=== PATIENT | female | born 1935 | race Caucasian/White ===

== ENCOUNTER → 2016-07-09 | Outpatient (CLI) | payer MEDICARE, OTHER ==
[~2016-07-09] MED LIST: ALBUTEROL SUL0.25 ML; AMBIEN10 M1; ATORVASTATIN CA80 M1 PO; ATROVENT; B121000 MCG/1 IM; BACTRIM DS 8001 TA1 PO; BLOOD PRESSURE PILL; CHOLESTEROL PILL; CIPRO500 MG; COLACE100 MG; DIPROLENE0.05% TP; DOXYCYCLINE HY100 M1 PO; DULCOLAX10 M1 RC; ESTRACE 0.01%42.5 GM V; FE-TABS325 MG PO; FLAGYL500 M1 PO; FLORASTOR 33 MG1 CAP PO; HUMULIN R100 U/ML IJ; JANUVIA100 MG PO; JANUVIA50 MG PO; KLONOPIN0.5 MG; LISINOPRIL HCTZ1 TAB PO; LISINOPRIL20 MG PO; LOPRESSOR25 MG PO; LOPRESSOR50 MG PO; METFORMIN; MILK OF MA400 MG/5 M PO; MILK OF MA400 MG/52 PO; MIRALAX POWDER255 G1 PO; NOVOLOG10 ML SC; NOVOLOG10 ML SQ; OXYBUTYNIN CHLOR5 MG PO; OXYBUTYNIN5 MG PO; RESTORIL15 MG PO; ROBITUSSIN; SEPTRA DS 800 M1 TAB PO; STARLIX60 MG PO; TYLENOL WITH CO1 TA1 PO; TYLENOL325 M2 PO; VANCOCIN250 MG PO; VITAMIN D35000 IU PO; ZITHROMAX Z PA250 MG PO; ZITHROMAX250 MG PO
--- NOTE | ~2016-07-09 | PROC NOTE ---
[place], [place] PROCEDURE NOTE NAME: SAVITA CRUZ UNIT #: [id number] ROOM: DOCTOR: LAKESHIA CALDERA BIRTHDATE: [birth year] DOS: 07/09/2016 MODIFIED BARIUM SWALLOW DOCTOR: Dr. Foote. RADIOLOGIST: BACKGROUND INFORMATION: The patient is an 81-year-old patient was seen for a modified barium swallow. This test was ordered to rule out aspiration. The patient reports a feeling of globus and choking with food. Medical history is significant for cerebral infarction, pharyngeal dysphagia and GERD. The patient resides at a local snf. She receives a mechanical soft diet and thin liquids. Oral peripheral examination revealed presence of natural teeth with no back teeth. Lingual, labial, and buccal skills were within normal limits in terms of strength, range of motion, and coordination. Volitional cough was weak. The patient was able to volitionally swallow. She stated that her mouth was too dry. The patient was alert and able to follow commands throughout the assessment. Respiratory status was reported as within normal limits. METHODS AND MATERIALS USED FOR THE EXAM: The patient was positioned in the lateral plane and examination was viewed under fluoroscopy. The patient was presented with a variety of consistencies to assess swallowing skills including applesauce mixed with barium presented in half teaspoon amounts, barium-coated cookie and sandwich presented in bite size pieces and thin liquid barium taken by cup and straw. ORAL PHASE: The patient achieved adequate labial seal around cup, spoon and straw with no anterior loss. Bolus formation was adequate. Mastication of solids was moderately impaired due to dentition. Oral transit was mild to moderately impaired with these consistencies as well. The patient achieved adequate tongue to palate contact. Tongue to posterior pharyngeal wall contact is within normal limits. Velar functioning within normal limits. PHARYNGEAL PHASE: The pharyngeal swallow occurred within a timely manner. During the swallow, laryngeal elevation and epiglottic function were adequate. No aspiration was seen with any consistency. Transient penetration did occur with thin liquid when taken by straw. This did not occur by cup. There was no residue in the pharynx post-swallow. ESOPHAGEAL PHASE: Radiologist did note a Zenker's diverticulum. Please refer to radiologist reports for further information on this. IMPRESSIONS AND RECOMMENDATIONS: Based upon assessment results, this patient displayed a mild oropharyngeal dysphagia characterized by penetration of liquids via straw. The patient also displayed slow mastication and propulsion of solids due to limited dentition. Radiologist noted a Zenker's diverticulum. Recommend the patient remain on mechanical soft diet and thin liquid. Recommend use of strategies such as avoidance of straws, small bites and sips, eating slowly and alternating liquids and solids. Results and recommendations were shared with [place], [place] PROCEDURE NOTE NAME: SAVITA CRUZ UNIT #: [id number] ROOM: DOCTOR: LAKESHIA CALDERA BIRTHDATE: [birth year] the patient and her son and they verbalized understanding. A written copy of recommendations was also sent for education of snf staff. Thank you very much for this referral. Should you have any questions regarding this patient, please contact the speech pathologist at [phone]. LAKESHIA CALDERA CM:PROCNOTE:PROCEDURE NOTE [id number] LAKESHIA CALDERA
--- NOTE | ~2016-07-09 | SLPPN ---
[place], [place] [employer] PROGRESS NOTE NAME: SAVITA CRUZ UNIT #: [id number] ROOM: DOCTOR: RIKI KATE MD Speech Language Pathology Treatment Note Page 1 of 1 Patient Name: SAVITA CRUZ Date: 07/09/2016 10:54 AM : 1935 SOC Date: 06/28/2016 Provider: [facility] Provider #: [id number] Treating Clinician: JYOTI Vargas-KAMERON Referring Physician: RIKI KATE Onset Date Code Description Primary Diagnosis: 06/27/2016 DYS.PHAGIA DYSPHAGIA Time In: 10:00 AM Time Out: 11:00 [employer] BROKER Interventions and CPT Codes Consisted of: CPT Code Modifiers Minutes Units MOTION FLUOROSCOPY/SWALLOW 13467 60 1 Total Minutes: 60 Total Timed Minutes: 0 Total Untimed Minutes: 60 Total Units: 1 Total Timed Units: 0 Total Untimed Units: 1 07/09/2016 10:55:09 AM ALFREDA Vargas Date/Time State License #: [id number] CM:MORIS [id number] [facility] [place]
--- NOTE | ~2016-07-09 | SLPPOC ---
[place], [place] MEDICAL BILLING INSTRUCTOR PLAN OF CARE NAME: SAVITA CRUZ UNIT #: [id number] ROOM: DOCTOR: RIKI KATE MD Speech Language Pathology Plan of Care Page 1 1 (Initial Evaluation) of Patient Name: SAVITA CRUZ Date: 07/09/2016 10:52 AM : 1935 SOC Date: 06/28/2016 Provider: [facility] Provider #: [id number] Treating Clinician: JYOTI Vargas-MEDICAL BILLING INSTRUCTOR Referring Physician: RIKI KATE Medicare #: [id number] Visits From SOC: 1 Onset Date Description Code Primary Diagnosis: 06/27/2016 DYS.PHAGIA DYSPHAGIA Subjective Comments: Initial evaluation created to initiate the electronic medical record. Please see Nanotecture for details. Initial Level Goals Functional Limitation Reporting Swallowing G8996 - Swallowing functional limitation, current status at therapy episode outset and at reporting intervals Current Status: CJ - At least 20 percent but less than 40 percent impaired, limited or restricted G8997 - Swallowing functional limitation, projected goal status, at therapy episode outset, at reporting intervals, and at discharge or to end reporting Goal Status: CJ - At least 20 percent but less than 40 percent impaired, limited or restricted G8998 - Swallowing functional limitation, discharge status, at discharge from therapy or to end reporting Discharge Status: CJ - At least 20 percent but less than 40 percent impaired, limited or restricted 07/09/2016 10:54:00 AM RIKI KATE Date/Time JYOTI Vargas-MEDICAL BILLING INSTRUCTOR Date I certify the need for these services furnished under this plan of treatment while under my care. State License #: [id number] CM:SLPPOC [id number] 1056 [facility] [place]
--- NOTE | ~2016-07-09 | SLPIE ---
[place], [place] MOLTEN IRON POURER INITIAL EVALUATION NAME: SAVITA CRUZ UNIT #: [id number] ROOM: DOCTOR: RIKI KATE MD Speech Language Pathology Initial Evaluation Page 1 1 of Patient Name: SAVITA CRUZ Date: 07/09/2016 10:52 AM : 1935 SOC Date: 06/28/2016 Provider: [facility] Provider #: [id number] Treating Clinician: JYOTI Vargas-MOLTEN IRON POURER Referring Physician: RIKI KATE Patient Information Address: [address] [place] [address] Physician: RIKI KATE Physician #: [facility], [facility], Zip: [place], [place] [address] Occupation: Unknown # of Approved Visits: 0 Gender: Female Shoe Sewing Machine Operator And Tender: KAYLA CRUZ Medicare #: [id number] Rehabilitation Information / History Onset Date Code Description Primary Diagnosis: 06/27/2016 DYS.PHAGIA DYSPHAGIA Subjective Comments: Initial evaluation created to initiate the electronic medical record. Please see wizboo for details. Clinical Findings Functional Goals Functional Limitation Reporting Swallowing G8996 - Swallowing functional limitation, current status at therapy episode outset and at reporting intervals Current Status: CJ - At least 20 percent but less than 40 percent impaired, limited or restricted G8997 - Swallowing functional limitation, projected goal status, at therapy episode outset, at reporting intervals, and at discharge or to end reporting Goal Status: CJ - At least 20 percent but less than 40 percent impaired, limited or restricted G8998 - Swallowing functional limitation, discharge status, at discharge from therapy or to end reporting Discharge Status: CJ - At least 20 percent but less than 40 percent impaired, limited or restricted 07/09/2016 10:54:00 AM JYOTI Vargas-KAMERON Date/Time [place], [place] [employer] P[employer] INITIAL EVALUATION NAME: SAVITA CRUZ UNIT #: [id number] ROOM: DOCTOR: RIKI KATE MD [facility] License #: [id number] CM:SLPIE 1056 105 [facility]
== END | disposition home or self-care (01) ==
LOC: RAD/SH 06-28 02:30 → RAD 06-28 09:00 → RAD/SH 02:56
DX: K44.9 Diaphragmatic hernia without obstruction or gangrene (principal); Q39.6 Congenital diverticulum of esophagus; R13.10 Dysphagia, unspecified

== ENCOUNTER → 2016-09-06 | Outpatient (CLI) | payer MEDICARE | END | disposition home or self-care (01) | LOC: MRI 09:49 | DX: S83.411A Sprain of medial collateral ligament of right knee, initial encounter (principal); M25.461 Effusion, right knee; S83.281A Other tear of lateral meniscus, current injury, right knee, initial encounter; S83.241A Other tear of medial meniscus, current injury, right knee, initial encounter; M71.21 Synovial cyst of popliteal space [Baker], right knee; M17.11 Unilateral primary osteoarthritis, right knee; X58.XXXA Exposure to other specified factors, initial encounter; Y93.89 Activity, other specified; Y92.89 Other specified places as the place of occurrence of the external cause; Y99.8 Other external cause status ==

== ENCOUNTER → 2016-09-20 | Day surgery (SDC) | payer MEDICARE ==
[~2016-09-20] MED LIST changes: +FAMOTIDINE20 M1 PO; +MARINOL2.5 M1 PO; +MIRALAX17 GM/DOSE PO; +PLAVIX75 M1 PO; +TRAD5TAB1 PO
--- NOTE | ~2016-09-20 | PROC NOTE ---
[place], [place] PROCEDURE NOTE NAME: SAVITA CRUZ UNIT #: [id number] ROOM: DOCTOR: PEDRO WAHL MD BIRTHDATE: [birth year] DOS: 09/20/2016 GASTROENDOSCOPIC REPORT INDICATION FOR PROCEDURE: This is an 81-year-old patient, who presented with a chief complaint of anorexia, undergoing investigation. The patient expresses that she cannot eat. No appetite. PAST MEDICAL HISTORY: Falling episode, fatty liver, abnormal LFTs as well as hypercholesterolemia, hypertension, diabetes mellitus, and rheumatoid arthritis. PAST SURGICAL HISTORY: Hysterectomy, vein ligation, tonsillectomy, and cataracts. FAMILY HISTORY: Noncontributory. ALLERGIES: PENICILLIN. SOCIAL HISTORY: Nonsmoker, nonalcohol consumer. PROCEDURE: Todays' procedure part of investigation is panendoscopy plus biopsy. PREMEDICATION: Versed and Diprivan. SCOPE: Olympus forward-viewing gastroscope Q10 video. Gastritis was noted. Antrum biopsy obtained. Duodenal bulb, second and third part within normal limits. The patient extubated along the lesser curvature, atrophic gastritis was dominating the presentation of the stomach. The patient tolerated the procedure well. IMPRESSION: Atrophic gastritis, anorexia. PLAN AND DISCUSSION: MRI of the pancreas is known to have shown multiple cysts. The esophagus was intentionally not dilated due to easy bleeding at the biopsy site in the stomach. This will be deferred to sometime in the future. We are going to keep the patient on famotidine 20 mg 1 every day. We are going to stimulate her appetite with Marinol 2.5 mg b.i.d. We are going to do a CT scan of the abdomen and pelvis with contrast to ensure there is no occult malignancy on board and that gives us a basic armamentarium to see what our next approach is going to be. She is going to be advised to have a routine followup with you in office and p.r.n. visit with us in GI Clinic. I thank you very much indeed for the opportunity to participate in GI care of your patient. [place], [place] PROCEDURE NOTE NAME: SAVITA CRUZ UNIT #: [id number] ROOM: DOCTOR[facility] [birth year] PEDRO WAHL MD CM:ASH:PROCEDURE NOTE 1503 1537 LOGAN WAHL MD
[2016-09-20 14:33] VITALS: BP 200/88
[2016-09-20 14:48] VITALS: BP 182/72
[2016-09-20 15:03] VITALS: BP 173/70
[2016-09-20 15:18] VITALS: BP 175/72
== END | disposition home or self-care (01) ==
LOC: SDC 09-17 10:15
DX: K29.50 Unspecified chronic gastritis without bleeding (principal); K44.9 Diaphragmatic hernia without obstruction or gangrene; E78.00 Pure hypercholesterolemia, unspecified; I10 Essential (primary) hypertension; E11.9 Type 2 diabetes mellitus without complications; M06.9 Rheumatoid arthritis, unspecified; K76.0 Fatty (change of) liver, not elsewhere classified; Z90.710 Acquired absence of both cervix and uterus; F41.9 Anxiety disorder, unspecified; D64.9 Anemia, unspecified; Z86.14 Personal history of Methicillin resistant Staphylococcus aureus infection; Z98.890 Other specified postprocedural states

== ENCOUNTER 2017-04-03 03:33 | Inpatient (IN) | payer MEDICARE, OTHER ==
[~2017-04-03] VITALS: Ht 167.6 cm; Wt 54.4 kg
[2017-04-03 03:35] VITALS: BP 175/71
[2017-04-03 04:01] LABS: BASO % 0.1 % (0.0-1.0); EOS % 0.2 % (1.0-4.0); HEMATOCRIT 36.6 % (37.0-47.0); HEMOGLOBIN 11.8 g/dl (12.0-16.0); LYMPH # 1.2 10*3/uL (1.3-4.4); LYMPH % 12.6 % (27.0-41.0); MEAN CELL VOLUME 84.5 fl (81.0-99.0); MEAN CORPUSCULAR HGB 27.3 pg (27.0-31.0); MEAN CORPUSCULAR HGB CONC 32.2 g/dl (33.0-37.0); MEAN PLATELET VOLUME 9.8 fl (9.6-12.3); MONO # 0.3 10*3/uL (0.1-1.0); MONO % 3.4 % (3.0-9.0); NEUT # 7.9 10*3/uL (2.3-7.9); NEUT % 83.4 % (47.0-73.0); PLATELET COUNT AUTOMATED 264 10*3/uL (130-400); RED BLOOD COUNT 4.33 10*6/uL (4.10-5.10); RED CELL DISTRI WIDTH 15.6 % (0-14.5); WHITE BLOOD COUNT 9.4 10*3/uL (4.8-10.8)
[2017-04-03 04:07] VITALS: BP 166/70
[2017-04-03 04:11] LABS: ACT PARTIAL THROMBO TIME 24.3 SECONDS (20.8-31.5)
[2017-04-03 04:18] LABS: ALBUMIN 2.8 gm/dl (3.1-4.5); CREATININE 1.81 mg/dL (0.55-1.02); POTASSIUM 4.2 mmol/L (3.5-5.1); TOTAL PROTEIN 7.4 gm/dL (6.4-8.2)
[2017-04-03 04:20] LABS: TROPONIN I 0.272 ng/ml (<0.045)
--- NOTE | 2017-04-03 04:21 | NUR ---
DR. KING NOTIFIED OF CRITICAL TROPONIN LEVEL.
[2017-04-03 05:04] LABS: BILIRUBIN NEGATIVE (NEGATIVE); BLOOD 1+ (NEGATIVE); CLARITY SL CLOUDY (CLEAR); COLOR YELLOW (YELLOW); GLUCOSE NEGATIVE (NEGATIVE); KETONE NEGATIVE (NEGATIVE); LEUKO ESTERASE 3+ (NEGATIVE); NITRITE POSITIVE (NEGATIVE); SPECIFIC GRAVITY 1.015 (1.005-1.030); UROBILINOGEN 0.2 E.U./dl (0.2-1.0)
[2017-04-03 05:10] LABS: BACTERIA 2+; WBC 41-50 wbc/hpf (0-5)
--- NOTE | 2017-04-03 05:43 | NUR ---
THIS NURSE RECEIVED REPORT FROM ED AT THIS TIME.
[2017-04-03 06:00] VITALS: BP 157/61
[2017-04-03 06:15] VITALS: BP 157/61
[2017-04-03] MEDS ORDERED: PAIN RELIEVER325 MG PO (06:25)
[2017-04-03] MEDS ORDERED: SEPTDS PO (06:26)
[2017-04-03] MEDS ORDERED: DULCOLAX10 M1 RC (06:27)
[2017-04-03] MEDS ORDERED: FAMOTIDINE40 MG PO (06:29)
[2017-04-03] MEDS ORDERED: METOPROLOL SUC100 M1 PO (06:30)
--- NOTE | 2017-04-03 07:41 | NUR ---
NOTIFIED DR. RYDER OF CRITICAL LAB.
[2017-04-03 08:00] VITALS: BP 145/60
--- NOTE | 2017-04-03 08:47 | NUR ---
Patient is LTC at [facility] and can return when medically stable for discharge.
--- NOTE | 2017-04-03 08:59 | NUR ---
PATIENT NOT AVAILABLE FOR ECHO, OFF THE FLOOR FOR OTHER TESTING.
--- NOTE | 2017-04-03 10:29 | NUR ---
DR. REDD NOTIFIED OF CRITICAL LAB VALUE.
--- NOTE | 2017-04-03 10:32 | NUR ---
PHYSICAL THERAPY Pnt unable to be aroused for PT evaluation this am. Will attempt again at a later time. Marlen Childers, PT
--- NOTE | 2017-04-03 10:36 | NUR ---
DR. MALAVE NOTIFIED OF CRITICAL LAB VALUE.
--- NOTE | 2017-04-03 10:52 | NUR ---
CRITICAL APTT OF 102.2, HEPARIN ON HOLD FOR 60MINUTES AND DECREASED BY 3UNITS/KG/HR PER PROTOCOL
[2017-04-03 16:00] VITALS: BP 152/47
--- NOTE | 2017-04-03 20:30 | NUR ---
AWAKE, ALERT AND ORIENTED. RESPIRATIONS EASY. LUNGS DIMINISHED, CLEAR. PULSE OX 98% RA. TRACE BLE EDEMA NOTED, L>R. OFFERED AND EDUCATED REGARDING TEDS, DECLINED. PANIAGUA PATENT. IV FLUIDS INFUSING PER ORDER. CALL LIGHT WITHIN REACH. NO VOICED COMPLAINTS
--- NOTE | 2017-04-03 21:40 | NUR ---
REQUESTED AND RECEIVED TRAZADONE PER PRN ORDER TO ASSIST WITH SLEEP. WILL MONITOR FOR EFFECTIVENESS
--- NOTE | 2017-04-03 23:00 | NUR ---
EARLIER MEDS APPEAR EFFECTIVE. SLEEPING. NO DISTRESS NOTED. RESPIRATIONS EASY. IV FLUIDS AND HEPARIN MAINTAINED PER ORDER. CALL LIGHT WITHIN REACH. BED ALARM MAINTAINED FOR SAFETY
[2017-04-04] VITALS: BP 164/43
--- NOTE | 2017-04-04 | NUR ---
SLEEPING. RESPIRATIONS EASY. VSS. IV FLUIDS AND HEPARIN MAINTAINED PER ORDER. CALL LIGHT WITHIN REACH.
--- NOTE | 2017-04-04 03:00 | NUR ---
CONTINUES TO SLEEP
[2017-04-04] MEDS ORDERED: ZOFRAN4 MG PO (03:50)
--- NOTE | 2017-04-04 06:00 | NUR ---
SLEPT THROUGHOUT NIGHT WITH NO DISTRESS NOTED. RESPIRATIONS EASY. IV FLUIDS MAINTAINED. CALL LIGHT WITHIN REACH. NO VOICED COMPLAINTS THIS SHIFT
[2017-04-04 06:49] LABS: BASO % 0.3 % (0.0-1.0); EOS # 0.2 10*3/uL (0.0-0.4); HEMATOCRIT 33.8 % (37.0-47.0); HEMOGLOBIN 10.8 g/dl (12.0-16.0); LYMPH % 29.5 % (27.0-41.0); MEAN CELL VOLUME 87.1 fl (81.0-99.0); MEAN CORPUSCULAR HGB 27.8 pg (27.0-31.0); MEAN PLATELET VOLUME 10.5 fl (9.6-12.3); MONO # 0.4 10*3/uL (0.1-1.0); MONO % 6.5 % (3.0-9.0); NEUT % 60.4 % (47.0-73.0); PLATELET COUNT AUTOMATED 233 10*3/uL (130-400); RED BLOOD COUNT 3.88 10*6/uL (4.10-5.10); RED CELL DISTRI WIDTH 15.9 % (0-14.5); WHITE BLOOD COUNT 6.6 10*3/uL (4.8-10.8)
[2017-04-04 07:04] LABS: ALBUMIN 2.5 gm/dl (3.1-4.5); CREATININE 1.3 mg/dL (0.55-1.02); TOTAL PROTEIN 6.3 gm/dL (6.4-8.2)
[2017-04-04 07:11] LABS: THYROID STIM HORMONE (HS) 1.32 uIU/ml (0.358-4.75)
[2017-04-04 07:24] LABS: INTERNATIONAL NORM RATIO 1.1 (2.0-3.5)
[2017-04-04 07:29] LABS: ACT PARTIAL THROMBO TIME 164.6 SECONDS (20.8-31.5)
--- NOTE | 2017-04-04 07:34 | NUR ---
PTT CRITICAL 164.6. HEPARIN ON HOLD FOR 1 HOUR THEN WILL RESUME AT 12U/KG/HR PER POLICY.
--- NOTE | 2017-04-04 07:53 | NUR ---
Shift chart check completed.
--- NOTE | 2017-04-04 08:07 | NUR ---
PATIENT COMPLAINING OF BACK PAIN RATED 9/10 AND NAUSEA. PATIENT MEDICATED WITH IVP MORPHINE AND ZOFRAN.
[2017-04-04 08:11] LABS: VITAMIN D, 25-HYDROXY 30.7 ng/mL (30-100)
[2017-04-04 08:44] VITALS: BP 168/64
--- NOTE | 2017-04-04 09:07 | NUR ---
PATIENT STATES MEDICATION EFFECTIVE
--- NOTE | 2017-04-04 11:05 | NUR ---
PHYSICAL THERAPY PAtient at CT scan. Raisa Cardoso,PT
--- NOTE | 2017-04-04 13:25 | NUR ---
REMOVED PANIAGUA. PATIENT TOLERATED WELL. PATIENT SITTING UP IN RECLINER BY WINDOW. DENIES ANY PAIN OR DISTRESS.
--- NOTE | 2017-04-04 14:08 | NUR ---
PHYSICAL THERAPY PAtient requests no PT this date. Thank you for this referral. Raisa Cardoso,PT
[2017-04-04 16:00] VITALS: BP 155/51
--- NOTE | 2017-04-04 19:32 | NUR ---
BLADDER SCANNED PATIENT FOR 124ML. PATIENT IS NOT DISTENDED AND DENIES ANY DISCOMFORT.
--- NOTE | 2017-04-04 20:25 | NUR ---
RESTING IN BED WATCHING TV WITH NO DISTRESS NOTED. RESPIRATIONS EASY. LUNGS DIMINISHED, CLEAR. ROOM AIR, DENIES SOB. BLE EDEMA L>R. REQUESTED AND RECEIVED RESTORIL PER PRN ORDER TO ASSIST WITH SLEEP. CALL LIGHT WITHIN REACH. NO VOICED COMPLAINTS. BED ALARM MAINTAINED FOR SAFETY
--- NOTE | 2017-04-04 22:00 | NUR ---
EARLIER RESTORIL APPEARS EFFECTIVE. SLEEPING. RESPIRATIONS EASY. CALL LIGHT WITHIN REACH
--- NOTE | 2017-04-04 23:00 | NUR ---
ASSISTED TO BR TO VOID.
[2017-04-05] VITALS: BP 153/82
--- NOTE | 2017-04-05 00:30 | NUR ---
SLEEPING. NO DISTRESS NOTED. RESPIRATIONS EASY. VSS. CALL LIGHT WITHIN REACH. BED ALARM MAINTAINED FOR SAFETY
--- NOTE | 2017-04-05 06:00 | NUR ---
SLEPT THROUGHOUT NIGHT WITH NO DISTRESS NOTED. RESPIRATIONS EASY. CALL LIGHT WITHIN REACH. NO VOICED COMPLAINTS. BED ALARM MAINTAINED FOR SAFETY
--- NOTE | 2017-04-05 07:36 | NUR ---
Shift chart check completed.
[2017-04-05 08:00] VITALS: BP 178/50
[2017-04-05] MEDS ORDERED: ASPIRIN ADULT L81 M2 PO (09:26)
[2017-04-05] MEDS ORDERED: CIPROFLOXACIN250 MG PO (09:26)
[2017-04-05] MEDS ORDERED: TOPROL XL50 M1 PO (09:26)
--- NOTE | 2017-04-05 11:18 | NUR ---
CALLED REPORT TO CAMILLA MCCARTY [facility]
--- NOTE | 2017-04-05 11:19 | NUR ---
REMOVED IV WITH BLEEDING CONTROLLED AND CATHETER INTACT.
--- NOTE | 2017-04-05 12:40 | NUR ---
PATIENT LEFT VIA AMBULANCE TO [facility]. PATIENT HAS NO COMPLAINTS. PATIENT IS D/C TO [facility]
[2017-04-05] MEDS ORDERED: LIPITOR80 MG PO (13:34)
--- NOTE | 2017-04-05 13:38 | NUR ---
NOTIFIED [facility] THAT THERE WAS ANOTHER SCRIPT ADDED AFTER PATIENT WAS D/C AND TRANSPORTED BACK TO [facility]. THEY ARE AWARE THAT PATIENT IS ALSO TO HAVE LIPITOR DAILY
== END 2017-04-05 12:40 | DRG 871 ==
LOC: ED 03:33 → EDHOLD 04:31 → 5E 04:31
PROVIDERS: Internal Medicine; Student in an Organized Health Care Education/Training Program; ADMIT Internal Medicine
DX: A41.9 Sepsis, unspecified organism (principal); G93.41 Metabolic encephalopathy; I21.4 Non-ST elevation (NSTEMI) myocardial infarction; N17.0 Acute kidney failure with tubular necrosis; E43 Unspecified severe protein-calorie malnutrition; N39.0 Urinary tract infection, site not specified; Z68.1 Body mass index [BMI] 19.9 or less, adult; Z66 Do not resuscitate; Z51.5 Encounter for palliative care; E11.65 Type 2 diabetes mellitus with hyperglycemia; I12.9 Hypertensive chronic kidney disease with stage 1 through stage 4 chronic kidney disease, or unspecified chronic kidney disease; N18.3 Chronic kidney disease, stage 3 (moderate); Z79.4 Long term (current) use of insulin; B96.20 Unspecified Escherichia coli [E. coli] as the cause of diseases classified elsewhere; I34.0 Nonrheumatic mitral (valve) insufficiency; M06.9 Rheumatoid arthritis, unspecified; Z90.710 Acquired absence of both cervix and uterus; Z98.49 Cataract extraction status, unspecified eye; Z82.49 Family history of ischemic heart disease and other diseases of the circulatory system; Z82.0 Family history of epilepsy and other diseases of the nervous system; Z83.3 Family history of diabetes mellitus; Z88.1 Allergy status to other antibiotic agents; Z88.0 Allergy status to penicillin; Z88.8 Allergy status to other drugs, medicaments and biological substances; Z79.899 Other long term (current) drug therapy

== ENCOUNTER 2017-04-13 19:16 | Inpatient (IN) | payer MEDICARE, OTHER ==
[~2017-04-13] VITALS: Ht 157.4 cm; Wt 55.9 kg
--- NOTE | ~2017-04-13 | PR ---
[place], [place] PROGRESS NOTE [id number] UNIT #: [id number] ROOM: 508 DOCTOR: MINERVA ANDERSON MD BIRTHDATE: [birth year] DOS: 04/18/2017 ADDENDUM The patient was seen and examined independently, [id number]-[id number] encounter and physical examination performed. The labs were reviewed. The patient's assessment and management was personally completed for today's visit. Note done by the medical care evaluation specialist was approved. The patient has not been noted any signs of respiratory distress, does not require any oxygen supplementation. Noted with intermittent confusion status and noted afebrile. OBJECTIVE: VITAL SIGNS: Temperature noted essentially normal. The respiratory rate of the patient recorded as 18, heart rate 112, blood pressure 161/69. The pulse oxygen saturation recorded 94% on room air. LUNGS: Noted clear for any wheezing or crackles. ABDOMEN: Soft, nontender. LABORATORY DATA: WBC count was 18.2, hemoglobin and hematocrit noted as 10.6/33, normal platelet count. CMP was noted as BUN 17, creatinine 1.24. Blood cultures, which were done from 04/16/2017 as well all of [address] scan of the chest that was completed yesterday for this patient was personally reviewed for this patient, does not show any acute pulmonary infiltration at the present time. Other abnormalities with trace bilateral pleural effusions. IMPRESSION: Leukocytosis with fever. The etiology remains unclear; however, the resolution of the sepsis has been noted progressive with improving acute kidney injury. There was no evidence of pneumonia noted small pleural fluid would be noted secondary to the fluid administration previously given to this patient for the medical management of acute sepsis. PLAN OF TREATMENT: Continue current empiric antibiotics for any signs of infection of the parts of the body, so far the blood culture, which were done were noted negative. Symptomatic improvement was continued. Leukocytosis still present with improving acute kidney injury. PLAN OF TREATMENT: No additional change in treatment at this time were desired. Monitor mental status, aspiration precautions for this patient to prevent aspirations. [place], [place] PROGRESS NOTE NAME: SAVITA CRUZ UNIT #: [id number] ROOM: 508 DOCTOR: MINERVA ANDERSON MD BIRTHDATE: [birth year] MINERVA SANTIAGO MD CM:PAUL [id number] MINERVA MORENO MD 04/18/17 1319 interface
--- NOTE | ~2017-04-13 | PR ---
[place], [place] PROGRESS NOTE [id number] UN[facility] #: [id number] ROOM: 508 DOCTOR: MINERVA ANDERSON MD BIRTHDATE: [birth year] DOS: 04/17/2017 The patient was admitted, seen and examined. Physical examination performed, all the labs were reviewed personally ____. The note done by the neuropsychology medical consultant was approved as well. The assessment and management made for this patient was personally done for today's visit. She has been noted intermittent confusional status. Possibility of dysphagia. The patient is not clear. She has not been noted any symptoms of acute shortness of breath or cough per nursing staff. PHYSICAL EXAMINATION: VITAL SIGNS: Reviewed was noted as temperature 99.7 degree Fahrenheit, respiratory rate of 20, heart rate 110, blood pressure 152/83 recorded. Pulse oxygen saturation noted on room air 96% saturation. LUNGS: The patient noted with mild decreased breath sounds without any wheezing or crackles. ABDOMEN: Soft, nontender. EXTREMITIES: Without any edema. LABORATORY DATA: CBC: WBC count 17.1, hemoglobin 10.9, hematocrit 32.9, platelet count was normal. CMP: Glucose of 223, BUN 18, creatinine 1.38. Sodium 133. Phosphorus was 1.3. The chest x-ray of the patient was noted with possibility of small area of atelectasis, right upper lung with prominent pulmonary hilar areas. IMPRESSION: Confusional status, most likely related to sepsis. The etiology is unclear. Vague density noted in the right upper lung with prominent pulmonary hilar area noted more on the right than the left side. Possibility of lymphadenopathy or large vessels would be considered. PLAN OF TREATMENT: The patient will be ordered CT scan of the chest for further assessment. CT scan of the chest will be done without contrast because of the elevation of the creatinine. However, the assessment would be considered suboptimal because of lack of the IV contrast for the hilar area; however, the right upper lung abnormality could be clearly determined. [place], [place] PROGRESS NOTE NAME: [facility] CRUZ [facility]: [id number] UNIT #: [id number] ROOM: 508 DOCTOR: MINERVA ANDERSON MD BIRTHDATE: [birth year] MINERVA SANTIAGO MD CM:PNTRANS 113 MINERVA MORENO MD 04/17/17 1135 interface
--- NOTE | ~2017-04-13 | CON ---
[place], [place] REPORT OF CONSULTATION NAME: SAVITA CRUZ [facility] #: [id number] UNIT #: [id number] ROOM: 508 DOCTOR: MINERVA ANDERSON MD BIRTHDATE: [birth year] DOS: 04/16/2017 CONSULTATION REQUESTED BY: The patient by the Hospitalist Services, Dr. Acosta. REASON FOR CONSULTATION: Assess the patient for possible aspiration pneumonia. HISTORY OF PRESENT ILLNESS: An 81-year-old white female who is a resident of [facility]. She has been brought to the hospital. The patient has been noted with increased confusion with the patient that has been occurring at the nursing facility. The patient has been admitted to the hospital and being treated with Rocephin. She was also noted with significant nausea, vomiting intermittently that has been treated with Zofran, which was noted ineffective. She has been noted with emesis and possible aspiration was also considered for this patient this morning. The patient was also noted with elevation of the temperature. The patient unable to give me any history. All the history has been obtained for this patient essentially after review of the current documentation, medical records by the other physicians on this hospitalization and admission. REVIEW OF SYSTEMS: Could not be completed due to the patient's inability to give me any history by herself. PAST MEDICAL HISTORY: 1. 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 2. Type 2 diabetes mellitus. 3. Essential hypertension. 4. Anemia of chronic disease. 5. History of rheumatoid arthritis. 6. Syncopal episodes. PAST SURGICAL HISTORY: Reported: 1. Hysterectomy. 2. Cataract extraction with lens implantation. SOCIAL HISTORY: Resident of group home. She has been reported with history of tobacco use in the past, unable to find out the exact duration of the tobacco use, quantity of tobacco use by the patient. There was no history of alcohol use reported. FAMILY HISTORY: The patient's family history was unknown. MEDICATIONS: The medications of the patient from the nursing facility were noted use of Tylenol, aspirin, Lipitor, Plavix, famotidine, NovoLog insulin, ____ metoprolol tartrate, oxybutynin, MiraLax and some p.r.n. medications. DRUG ALLERGIES: REPORTED: 1. CIPROFLOXACIN. 2. MACRODANTIN. 3. PENICILLINS. [place], [place] REPORT OF CONSULTATION NAME: SAVITA CRUZ UNIT #: [id number] ROOM: 508 DOCTOR: JACK MORENO MD,MINERVA BIRTHDATE: [birth year] PHYSICAL EXAMINATION: GENERAL: This is an 81-year-old female who has been currently resting comfortably in bed, does not show any acute distress at this time, using oxygen supplementation via nasal cannula, does not answer back to questions. VITAL SIGNS: Height for the patient recorded as 5 feet 2 inches, weight of 229 pounds, BMI 22.9 reported. Temperature noted as 100.8 degree Fahrenheit rectal temperature low-grade fever. There were noted 99.4 degrees oral temperature, respiratory rate 16-18. Heart rate of 100-109, blood pressure 188/87-149/60. Pulse oxygen saturation of the patient noted at 98% on room air. HEENT: Examination shows head was atraumatic. Eyes nonicterus. NECK: Supple. CARDIOVASCULAR: S1, S2 audible. LUNGS: Occasional scattered crackles without any wheezing. The breath sounds was noted bilaterally normal. ABDOMEN: Flat, soft, nontender. Bowel sounds are present. EXTREMITIES: Show no edema, clubbing or cyanosis. SKIN: No lesions or rashes. MUSCULOSKELETAL: No acute deformities. CENTRAL NERVOUS SYSTEM: Could not be performed on the patient as she does not participate in the physical examination and follow the instructions. LABORATOR DATA: The CBC of the patient on 04/13/2017 on admission was noted essentially normal except hemoglobin mildly decreased at 11.8. Lactic acid 1.0 on 04/13 on admission. CMP on admission, BUN 17, creatinine 1.48. The AST 117, ALT 87, alkaline phosphatase 476. Ammonia level less than 10, was noted on admission as well. The lactic acid was elevated in the patient this morning 08:24 at 3.2. Follow up lactic acid of the patient after a few hours was 1.5. The hepatitis A, B and C serology for patient was noted as negative. Urine culture, no bacterial growth from admission. CMP of the patient this morning lab was noted with BUN 13, creatinine 1.27, glucose 260. AST, ALT the patient was noted with improvement. Alkaline phosphatase still noted elevated. GTT was also elevated of the patient at 420. Troponin for the patient, which were done today was noted, troponin 0.113. Second troponin was noted as 0.119. Both were noted only mildly elevated. Blood culture from the 04/13 shows no bacterial growth. CBC of this morning: WBC count was elevated acutely to 21.7. Hemoglobin and hematocrit noted mildly decreased, platelet count remains normal. The other differentials for this patient was noted with neutrophils at 89.8%. Review of the radiology data pertinent to the chest for this patient. The patient had a chest x-ray of the patient that was done today for the patient 1 view, which was personally reviewed for this patient and it shows pulmonary venous congestion without any area of acute consolidation at this time was visible. CT scan of the abdomen and pelvis was done on admission for the patient on 04/13 [place], [place] REPORT OF CONSULTATION NAME: SAVITA CRUZ UNIT #: [id number] ROOM: [facility] DOCTOR: MINERVA ANDERSON MD BIRTHDATE: [birth year] for the patient reported by the radiologist as the patient has no acute abdominal process. Trace bilateral pleural fluid visible in the lower portion in the CT of the thorax. Evidence of diverticulosis noted without evidence of diverticulitis. Stool was noted in the bowels. Nonobstructive bilateral renal calculi for the patient without urethral calculus or hydronephrosis also reported by the radiologist. IMPRESSION: 1. The patient will be currently admitted to the hospital with symptoms of nausea and vomiting. The patient currently being determined the etiology noted possibility of aspiration with low grade fever. However, significant leukocytosis has occurred for the patient consistent with acute infection and sepsis as the WBC count was also elevated and noted with mild tachycardia. There was no gross pulmonary infiltration visible at this time, which may be early to detect any infiltration at the present time on the current chest x-ray, which was done only few hours post-aspiration. However, over the aspiration does not seem to be gross in the patient resulting in chemical pneumonitis. The differential of the infection in the patient as to be considered as a gram-positive and gram-negative infections with hospital-acquired infection. 2. Mild elevation in troponin for the patient, significance of that is unknown at the present time. PLAN OF MANAGEMENT: The patient will be started on the gram-positive and gram-negative coverage until the etiology infection to be determined. Obtain a chest x-ray, PA and lateral view in the morning to reassess the patient for interval development of any acute infiltration, consolidation. Discontinuation of the clindamycin of the patient and IV Rocephin since they will not be needed. Other supportive plan of therapy care and other medical management. Usual care, other supportive plan of treatment. Blood culture will be ordered for this patient as well if not done for the patient on today. If the patient does expectorate any sputum for this patient certainly could be sent for the culture. Other supportive plan of therapy. Bronchodilator help mobilize secretions as the patient cautioned closely medication to manage the nausea and vomiting. Continue the GI assessment patient as well. Thank you for allowing me to participate in the care of this patient. MINERVA SANTIAGO MD CM:CONSTR:REPORT OF CONSULTATION 1207 04/16/17 1511 interface
--- NOTE | ~2017-04-13 | PR ---
[place], [place] PROGRESS NOTE [id number] #: [id number] ROOM: 508 DOCTOR: JACK MORENO MD,MINERVA BIRTHDATE: [birth year] DOS: 04/19/2017 SUBJECTIVE: The patient has been noted comfortable at this time, resting. She did eat her food as per daughter, who was present at bedside with the patient. Not reported any symptoms of coughing, chest pain, or sputum expectoration. OBJECTIVE: VITAL SIGNS: Normal temperature, respiratory rate 20, heart rate of 99, blood pressure 170/70-144/70. Pulse oxygen saturation recorded as 96% on room air. HEENT: Showed no new change. NECK: Supple. CARDIOVASCULAR: S1, S2 audible. LUNGS: Clear to auscultation bilaterally. ABDOMEN: Soft, nontender. LABORATORY DATA: Blood culture on 04/13/2017 was noted as normal. IMPRESSION: 1. The patient with possibility of aspiration from the previous hematemesis. There was no evidence of acute pneumonia. 2. Nausea, vomiting and other medical issues. PLAN OF TREATMENT: No changes in the plan of therapy at this time. Continue the patient's current therapy as previously. Other supportive plan and management to be continued. Usual care, other supportive care and plan. MINERVA SANTIAGO MD CM:PNTRANS [phone] MINERVA MORENO MD 04/20/17 0150 interface
--- NOTE | ~2017-04-13 | CON ---
[place], [place] REPORT OF CONSULTATION [id number] UNIT #: [id number] ROOM: 508 DOCTOR: VEENA CR MD BIRTHDATE: [birth year] DOS: 04/19/2017 ATTENDING PHYSICIAN: Dr. Elías Fragoso HISTORY OF PRESENT ILLNESS: The patient is an 81-year-old female with a past medical history of: 1. Suspected infection and severe leukocytosis with advanced failure to thrive, generalized weakness and progressive decline in health despite of treatment with antibiotics. The patient has a history of stage 3 chronic kidney disease and diabetic nephropathy. 2. Benign essential hypertension. 3. Normocytic anemia. 4. Severe protein calorie malnutrition. 5. Rheumatoid arthritis. 6. History of coronary artery disease with non-STEMI and cardiac enzymes and troponin I level elevation. 7. Generalized weakness and adult failure to thrive. Presently, the patient admitted under care of Dr. Elías Fragoso with severe adult failure to thrive, malnutrition, leukocytosis, sepsis, which has been treated and now patient is taken off antibiotics by infectious disease specialist. The patient barely opens her eyes and is confused and unable to provide any history. No recent chest pain. No increasing shortness of breath. No other GI or urinary symptoms. The patient is very weak and her health has been gradually declining. The patient has been admitted to our hospital about 5 times in little more than a year. Situation discussed with patient's family in detail. REVIEW OF SYSTEMS: LUNGS: No increasing shortness of breath or wheezing. GASTROINTESTINAL: No nausea, vomiting, diarrhea or constipation, but patient not eating well. CARDIOVASCULAR SYSTEM: No chest pains or palpitations. LUNGS: No wheezing or shortness of breath. FAMILY HISTORY: Noncontributory. SOCIAL HISTORY: The patient has been residing at [facility] for 5 years. No recent history of taking alcohol. The patient is a former smoker. MEDICATIONS: Metoclopramide, Carafate, Protonix, DuoNeb, iron, amlodipine, potassium, MiraLax, Tradjenta, famotidine, metoprolol, Colace, ondansetron, temazepam.. Morphine and vancomycin and cefepime have been discontinued today. PHYSICAL EXAMINATION: GENERAL: The patient barely opens her eyes, very weak, generalized cachexia and emaciation. VITAL SIGNS: Blood pressure 164/86, heart rate 99 beats per minute, breathing 20 times per minute, temperature 98.5 degrees Fahrenheit. [place], [place] REPORT OF CONSULTATION NAME: SAVITA CRUZ UNIT #: [id number] ROOM: 508 DOCTOR: VEENA CR MD BIRTHDATE: [birth year] HEENT AND NECK: Extraocular movements are intact. Sclerae are anicteric. Oral mucosa is moist and clean. No obvious facial weakness. Neck is supple without any lymphadenopathy. No thyromegaly. No JVD. No carotid arterial bruits. LUNGS: Clear to auscultation. No wheezing. No rhonchi. CARDIOVASCULAR SYSTEM: Heart rate is regular in rate and rhythm. S1 and S2 normally audible. No significant murmur or any other abnormal cardiac sounds. ABDOMEN: Soft, nontender. No obvious organomegaly. Bowel sounds are present. No obvious herniation. EXTREMITIES: Without significant cyanosis or edema. Warm to touch. CENTRAL NERVOUS SYSTEM: Alert and oriented x 3. Cranial nerves II-XII are intact. Speech is normal. The patient is able to move all extremities. Normal muscle strength. Deep tendon reflexes are equal on both sides. Plantars were downgoing. IMPRESSION AND PLAN: 1. The patient with old age, advanced adult failure to thrive with severe protein calorie malnutrition along with mental confusion which is not improving. The patient has stage 3 chronic kidney disease, history of hypertension and non-ST elevation myocardial infarction during this admission. The patient has already been seen by shrimp header, Dr. House, Infectious Disease specialist, Dr. Prieto and commercial drone pilot, Dr. Acosta and she is not improving. The patient has already lived at [facility] because of her advanced disability for about 5 years now. The patient is receiving IV fluids and her IV antibiotics have been stopped. 2. Benign essential hypertension, which is being treated and controlled. 3. Chronic constipation, being treated with MiraLax and Dulcolax and she is moving her bowels. 4. Severe protein calorie malnutrition. The patient unable to eat much and family is not interested in further treatment with PEG tube placement for nutrition. 5. Chronic primary insomnia, treated with temazepam. I am recommending that the patient after completing her treatment at the hospital when she is transferred back to [facility], she can go there with DNR comfort care code status, which we maintain at the present time and also not be sent back to the hospital for further intense care. The patient can be kept comfortable at [facility] with the help of hospice. This was discussed in detail with patient's next of kin who were present with the patient at present time, 1 daughter and 2 sons and they all agree. Stacey Griffiths and Dr. Elías Fragoso, thank you for asking me to see this patient and her very pleasant family. One hour's time was spent with the patient and her family today. [place], [place] REPORT OF CONSULTATION NAME: SAVITA CRUZ UNIT #: [id number] ROOM: 508 DOCTOR: VEENA CR MD BIRTHDATE: [birth year] VEENA CR MD CM:CONSTR:REPORT OF CONSULTATION 181 04/19/172044 interface
--- NOTE | ~2017-04-13 | O ---
[place], [place] OPERATIVE NOTE NAME: SAVITA CRUZ UNIT #: [id number] ROOM: 508 DOCTOR: PEDRO WAHL MD BIRTHDATE: [birth year] DOS: 04/16/2017 GASTROENDOSCOPIC REPORT. HISTORY: The patient has presented with history of hematemesis, undergoing investigation. The patient has been conservatively managed initially, family did not want any investigation done. Subsequently due to the recurrent emesis, it became evident that we need to help this patient to know what the etiology of the problem is and arrangement was made for upper endoscopy. This is despite the fact that we have found multiple problems including elevation of troponin. PROCEDURE: Today's procedure part of investigation is panendoscopy plus biopsy. PREMEDICATION: Versed and Diprivan. SCOPE: Olympus forward-viewing gastroscope Q10 video. REPORT: After putting the patient in the left lateral position and application of lubricant to the scope, the scope was introduced. Thereafter, under direct visualization, I advanced through the length of the esophagus without difficulty. Diffuse esophageal ulceration was noticed. This was extending from cervical esophagus to esophagogastric junction. Gastric pouch was entered. Mild gastritis seen. Duodenum expresses multiple ulcerations. Photographic series obtained. Biopsy obtained. The scope was gradually withdrawn. The patient extubated, tolerated procedure well. IMPRESSION: Diffuse esophageal ulcerations as the culprit in hematemesis, duodenal ulcers, retained bilious matter, status post suctioning of 500 bilious matter from the stomach. PLAN AND DISCUSSION: Sucralfate 2 grams slurry q.i.d., Protonix 40 mg IV b.i.d., Reglan 5 mg daily and every 6 hours. We are going to have a Gaviscon 15 meal 3 hours away from Carafate to be instituted. Clinical reassessment. Case was discussed with the family. They are content with the findings. Thank you very much indeed. [place], [place] OPERATIVE NOTE NAME: SAVITA CRUZ UNIT #: [id number] ROOM: 508 DOCTOR: PEDRO WAHL MD BIRTHDATE: [birth year] PEDRO WAHL MD CM:OPRECORD:OPERATIVE NOTE [id number] PEDRO WAHL MD 04/16/17 1519 interface
--- NOTE | ~2017-04-13 | PR ---
[place], [place] PROGRESS NOTE NAME: SAVITA CRUZ UNIT #: [id number] ROOM: 508 DOCTOR: PRECIOUS MÉNDEZ DO BIRTHDATE: [birth year] DOS: 04/17/2017 SUBJECTIVE: The patient is still confused and noncooperative. She does not answer questions or follow commands. She is unable to participate in the interview. She had an EGD done by Dr. Acosta, which showed diffuse esophageal and duodenal ulcers with retained bilious matter and this was suctioned. She was started on sucralfate and Reglan as well as Gaviscon. OBJECTIVE: VITAL SIGNS: Temperature is 97.9, pulse rate is 110, respiratory rate is 20, blood pressure is 153/80, pulse ox is 96. HEENT: Showed no new changes. Head is normocephalic, atraumatic. Eyes: Pupils are equal and reactive to light bilaterally. NECK: No lesions, masses, ulcerations. Trachea is midline. CARDIOVASCULAR: S1 and S2 are audible. Rate is tachycardic. LUNGS: Decreased breath sounds with some mild crackles scattered bilaterally. Negative wheezing. ABDOMEN: Soft and nontender. EXTREMITIES: Nonedematous and they have no erythema. IMPRESSION: Increased confusion and GI distress and vomiting. There does not appear to be any focal findings regarding respiratory pathogen. We will continue to monitor. Please see Dr. Santiago's attached note for further details on the assessment and plan of management for this patient. PRECIOUS MÉNDEZ DO MINERVA SANTIAGO MD CM:PAUL [id number] PRECIOUS MÉNDEZ DO 04/17/172044 interface
--- NOTE | ~2017-04-13 | PR ---
[place], [place] PROGRESS NOTE [id number] UNIT #: [id number] ROOM: 508 DOCTOR: JACK MORENO MD,MINERVA BIRTHDATE: [birth year] DOS: 04/20/2017 SUBJECTIVE: She has been noted more lucid today, but still not eating much of the food per family members. She denies symptoms of any chest pain or hemoptysis. OBJECTIVE: VITAL SIGNS: Recorded and show temperature noted as normal. Respiratory rate recorded as 20, heart rate 114, and blood pressure 167/61. Pulse oxygen saturation was noted on room air 100% saturation. HEENT: Examination shows no acute change. NECK: Supple. CARDIOVASCULAR: S1, S2 audible. LUNGS: Clear. ABDOMEN: Soft, nontender. IMPRESSION: Peptic ulcer disease. The patient with acute bronchitis, no evidence of acute pneumonia. The patient with stable respiratory status. PLAN OF MANAGEMENT: Pulmonary signed off the patient today. At this time, no further intervention will be needed. The patient will be continued on other previous therapy, plan and management and care. Usual care. MINERVA SANTIAGO MD CM:PNTRANS 1431 MINERVA MORENO MD 04/21/17 0402 interface
--- NOTE | ~2017-04-13 | PR ---
[place], [place] PROGRESS NOTE [id number] #: [id number] ROOM: 508 DOCTOR: PRECIOUS MÉNDEZ DO BIRTHDATE: [birth year] DOS: 04/18/2017 This progress note is to be attached to Dr. Santiago's progress note. SUBJECTIVE: The patient was seen and evaluated today. The patient is difficult to arouse and she is quite lethargic with no significant noted changes in status from yesterday. OBJECTIVE: VITAL SIGNS: Temperature is 99.5, pulse rate is 112, respiration rate is 18 and blood pressure is 161/69. GENERAL: The patient is quite lethargic and difficult to arouse. CARDIOVASCULAR: Tachycardia, but with regular rhythm. RESPIRATORY: Distant breath sounds, some minimal crackling could be heard. ABDOMEN: Soft and nontender. EXTREMITIES: Lower extremities, no edema or erythema. LABORATORY DATA: White count is 18.2, hemoglobin is 10.6, platelet count is 233. Sodium 135, potassium 3.8, chloride 100, carbon dioxide 26, BUN 17, creatinine 1.24, GFR 42, glucose 184, calcium 9.2, total bilirubin is 1.1, direct bilirubin 0.4, AST 39, ALT 40, alk phos 270 and total protein of 6.6 and albumin is 2.4. Urinalysis shows +1 leukocyte esterase and +2 bacteria, 5-10 white blood cells, 5-10 epithelial cells, 2-4 red blood cells, negative glucose in the urine and 5-10 hyaline casts. Urine appears cloudy. IMPRESSION: The patient continues to be confused and lethargic and fails to thrive. Sepsis is likely the cause, but the etiology is unclear. A CT scan of the lungs was done and showed no acute pathology and prior to that a chest x-ray was done and was read by the radiologist as possible pneumonia ____ secondary to the confirmation via CT scan no lung pathology could be seen at this time. We will continue to follow. Please see Dr. Santiago's note for further details and the plan of management and impression. PRECIOUS MÉNDEZ DO [place], [place] PROGRESS NOTE NAME: SAVITA CRUZ UNIT #: [id number] ROOM: 508 DOCTOR: PRECIOUS MÉNDEZ DO BIRTHDATE: [birth year] MINERVA SANTIAGO MD CM:PAUL [id number] PRECIOUS MÉNDEZ DO 04/18/17 1847 interface
[~2017-04-13 19:16] MED LIST changes: +ASPIRIN ADULT L81 M2 PO; +CIPROFLOXACIN250 MG PO; +FAMOTIDINE40 MG PO; +LIPITOR80 MG PO; +METOPROLOL SUC100 M1 PO; +PAIN RELIEVER325 MG PO; +SEPTDS PO; +TOPROL XL50 M1 PO; +ZOFRAN4 MG PO
[2017-04-13 19:33] VITALS: BP 162/84
[2017-04-13 20:03] LABS: BILIRUBIN NEGATIVE (NEGATIVE); BLOOD NEGATIVE (NEGATIVE); CLARITY CLEAR (CLEAR); COLOR YELLOW (YELLOW); GLUCOSE NEGATIVE (NEGATIVE); KETONE NEGATIVE (NEGATIVE); LEUKO ESTERASE NEGATIVE (NEGATIVE); NITRITE NEGATIVE (NEGATIVE); UROBILINOGEN 0.2 E.U./dl (0.2-1.0)
[2017-04-13 20:10] LABS: BACTERIA TRACE
[2017-04-13 20:44] LABS: BASO % 0.3 % (0.0-1.0); EOS # 0.3 10*3/uL (0.0-0.4); EOS % 3.5 % (1.0-4.0); HEMATOCRIT 38.2 % (37.0-47.0); HEMOGLOBIN 11.8 g/dl (12.0-16.0); LYMPH # 1.7 10*3/uL (1.3-4.4); LYMPH % 21.5 % (27.0-41.0); MEAN CELL VOLUME 87.8 fl (81.0-99.0); MEAN CORPUSCULAR HGB 27.1 pg (27.0-31.0); MEAN CORPUSCULAR HGB CONC 30.9 g/dl (33.0-37.0); MEAN PLATELET VOLUME 10.3 fl (9.6-12.3); MONO # 0.6 10*3/uL (0.1-1.0); MONO % 7.3 % (3.0-9.0); NEUT # 5.2 10*3/uL (2.3-7.9); PLATELET COUNT AUTOMATED 248 10*3/uL (130-400); RED BLOOD COUNT 4.35 10*6/uL (4.10-5.10); WHITE BLOOD COUNT 7.8 10*3/uL (4.8-10.8)
[2017-04-13 21:00] LABS: CREATININE 1.48 mg/dL (0.55-1.02); POTASSIUM 4.6 mmol/L (3.5-5.1); TOTAL PROTEIN 7.7 gm/dL (6.4-8.2)
--- NOTE | 2017-04-13 22:03 | NUR ---
NURSE TO CALL BACK FOR REPORT
[2017-04-13 22:20] VITALS: BP 150/90
--- NOTE | 2017-04-13 22:20 | NUR ---
A 81, admitted to 5E, under the services of CHARISSA Christensen DO with a diagnosis of CONFUSION, ELEVATED LIVER ENZYMES. Chief complaint is CONFUSION. Patient arrived via ambulance from ER. Monitor applied. Initial assessment completed. Vital signs taken and recorded. CHARISSA CHRISTENSEN DO notified of admission to the unit. Orders received. See assessment for past medical history, medications and allergies. Patient and/or family oriented to unit. visitation policy reviewed. Clothing/patient valuable form completed. CASEY MORTENSEN
[2017-04-13] MEDS ORDERED: LIPITOR80 MG PO (22:42)
[2017-04-13] MEDS ORDERED: TEMAZEPAM15 M1 PO (22:50)
--- NOTE | 2017-04-13 22:52 | NUR ---
PT MED REC UP TO DATE PER LIST FROM [facility]
[2017-04-14] VITALS: BP 112/83; BP 161/89
--- NOTE | 2017-04-14 00:51 | NUR ---
PATIENT MEDICATED WITH RESTORIL AT 0015 FOR COMPLAINTS OF INSOMNIA WITH EFFECTIVE RESULTS NOTED. PATIENT HAS A PINKISH RED AREA TO COCCYX MEASURING 3CM X 6CM. PATIENT CONFUSED AND UNABLE TO SIGN CONSENT FOR PICTURES SO NONE TAKEN. WILL CONTINUE TO MONITOR. CALL LIGHT IN REACH.
--- NOTE | 2017-04-14 06:35 | NUR ---
PATIENT REFUSED LABS THIS AM.
--- NOTE | 2017-04-14 06:42 | NUR ---
DR. BROOKS NOTIFIED OF PATIENT REFUSAL OF LABS.
[2017-04-14 08:00] VITALS: BP 176/60
[2017-04-14 08:41] LABS: BASO % 0.2 % (0.0-1.0); EOS # 0.3 10*3/uL (0.0-0.4); EOS % 3.1 % (1.0-4.0); HEMATOCRIT 37.6 % (37.0-47.0); HEMOGLOBIN 11.9 g/dl (12.0-16.0); LYMPH # 3.5 10*3/uL (1.3-4.4); LYMPH % 35.3 % (27.0-41.0); MEAN CELL VOLUME 87.4 fl (81.0-99.0); MEAN CORPUSCULAR HGB 27.7 pg (27.0-31.0); MEAN CORPUSCULAR HGB CONC 31.6 g/dl (33.0-37.0); MEAN PLATELET VOLUME 10.4 fl (9.6-12.3); MONO # 0.7 10*3/uL (0.1-1.0); MONO % 7.2 % (3.0-9.0); NEUT # 5.4 10*3/uL (2.3-7.9); PLATELET COUNT AUTOMATED 265 10*3/uL (130-400); RED CELL DISTRI WIDTH 16.9 % (0-14.5); WHITE BLOOD COUNT 9.9 10*3/uL (4.8-10.8)
[2017-04-14 08:54] LABS: ALBUMIN 2.9 gm/dl (3.1-4.5); CREATININE 1.27 mg/dL (0.55-1.02); PHOSPHOROUS 1.7 mg/dL (2.5-4.9); TOTAL PROTEIN 7.5 gm/dL (6.4-8.2)
[2017-04-14 08:58] LABS: POTASSIUM 3.5 mmol/L (3.5-5.1)
--- NOTE | 2017-04-14 09:02 | NUR ---
Patient is LTC at [facility] and can return when medically stable for discharge.
--- NOTE | 2017-04-14 09:21 | NUR ---
Notified Dr. Salazar of blood sugar result of 46 from morning labs and that d50 was given per prn order.
--- NOTE | 2017-04-14 11:50 | NUR ---
DR. WAHL NOTIFIED OF CONSULT.
[2017-04-14 12:00] VITALS: BP 160/80
--- NOTE | 2017-04-14 13:22 | NUR ---
PHYSICAL THERAPY PAtient with Doctors at this time. Raisa Cardoso,PT
--- NOTE | 2017-04-14 13:40 | NUR ---
PT refused to have labs drawn. Dr. Salazar notified.
[2017-04-14 16:00] VITALS: BP 176/80
--- NOTE | 2017-04-14 16:23 | NUR ---
MBP was 170/80, toprol was ordered from home meds and given at this time.
--- NOTE | 2017-04-14 20:00 | NUR ---
ASSUMED CARE OF PATIENT. ASSESSMENT COMPLETE. RESTING IN BED. BED ALARM ON. CALL LIGHT IN REACH. WILL CONTINUE TO MONITOR.
--- NOTE | 2017-04-14 20:34 | NUR ---
PT'S BLOOD PRESSURE WAS REPORTED 225/86. RECHECKED IT MANUALLY AND WAS RECORDED 225/80 IN THE RIGHT ARM, AND 218/82 IN THE LEFT ARM. CALLED DR KAUR WHO SAID HE WOULD PUT ORDERS IN.
[2017-04-14 20:36] VITALS: BP 218/82; BP 225/80
[2017-04-15] VITALS: BP 163/55
--- NOTE | 2017-04-15 00:41 | NUR ---
CALLED DR KAUR AND MADE HIM AWARE, PT'S BP IS 176/64 AFTER ADMINISTRATION OF HYDRALAZINE. NO NEW ORDERS RECEIVED.
[2017-04-15 03:00] VITALS: BP 170/78
--- NOTE | 2017-04-15 03:21 | NUR ---
PT PULLED IV OUT. IV ACCESS ATTEMPTED MULTIPLE TIMES BY MULTIPLE NURSES AND UNSUCCESSFUL. PT REFUSING MORE STICKS AT THIS TIME. CALLED AND SPOKE TO DR KAUR, HE STATES TO TRY AGAIN IN THE MORNING.
[2017-04-15 07:38] LABS: BASO % 0.1 % (0.0-1.0); EOS # 0.2 10*3/uL (0.0-0.4); EOS % 1.5 % (1.0-4.0); HEMATOCRIT 36.6 % (37.0-47.0); HEMOGLOBIN 11.6 g/dl (12.0-16.0); LYMPH # 1.8 10*3/uL (1.3-4.4); LYMPH % 17.6 % (27.0-41.0); MEAN CELL VOLUME 86.5 fl (81.0-99.0); MEAN CORPUSCULAR HGB 27.4 pg (27.0-31.0); MEAN CORPUSCULAR HGB CONC 31.7 g/dl (33.0-37.0); MEAN PLATELET VOLUME 10.5 fl (9.6-12.3); MONO # 0.7 10*3/uL (0.1-1.0); MONO % 7.1 % (3.0-9.0); NEUT # 7.3 10*3/uL (2.3-7.9); NEUT % 73.2 % (47.0-73.0); PLATELET COUNT AUTOMATED 246 10*3/uL (130-400); RED BLOOD COUNT 4.23 10*6/uL (4.10-5.10)
[2017-04-15 08:00] VITALS: BP 183/66
[2017-04-15 08:01] LABS: ALBUMIN 2.8 gm/dl (3.1-4.5); CREATININE 1.49 mg/dL (0.55-1.02); POTASSIUM 3.9 mmol/L (3.5-5.1); TOTAL PROTEIN 7.3 gm/dL (6.4-8.2)
--- NOTE | 2017-04-15 09:30 | NUR ---
PT HAD A CHOKING SPELL WHILE TAKING PO MEDICATIONS WITH WATER. THE PT COUGHED AND HAD AN EMESIS EPISODE, REGAINED AIRWAY AND STATED SHE WAS OK. THE REST OF THE MEIDICATIONS WERE CRUSHED AND GIVEN WITH APPLESAUCE. AGUSTIN DRESSMAKING TEACHER WAS CALLED AND NOTIFIED AND SPEECH CONSULT WAS ORDERED. NO CONCERNS AT THIS TIME.
--- NOTE | 2017-04-15 11:30 | NUR ---
SPEECH PATHOLOGY Orders for clinical swallowing eval. received and chart review completed. Upon arrival to patient's room, she was found to be hollering for help, stating that she was not feeling well. She reported "I hurt all over." Patient had apparently vomited, as it was observed to be on her face, body and clothing. Patient's nurse and aide were notified. Patient politely declined assessment of swallowing at this time, stating she did not feel well enough. Her aide reported that she was not able to eat breakfast this morning due to illness. Will attempt assessment again later this afternoon. Thank you for this referral. LAKESHIA CALDERA MSCCC-WASTEWATER PLANT CIVIL ENGINEER
--- NOTE | 2017-04-15 11:30 | NUR ---
PT HAS CONTINUED TO HAVE N/V EPISODES. ZOFRAN WAS GIVEN AT 1003 WITH NO SUCCESS. PHENERGAN ORDERED AND GIVEN, WILL RECHECK PT STATUS AT 1200.
[2017-04-15 12:00] VITALS: BP 152/84
--- NOTE | 2017-04-15 12:12 | NUR ---
PATIENT SLEEPING AT THIS TIME. NO CONCERNS NOTED.
--- NOTE | 2017-04-15 15:25 | NUR ---
SPEECH PATHOLOGY Second attempt made to evaluate swallowing skills at bedside. When clinician entered, patient was asleep. She awakened when her name was called but she barely aroused and then closed her eyes. Very minimal response was elicited to questions asked. As she was ill this morning, she was asked if she felt up to eating something in order to complete assessment of swallowing. She shook her head no. Will attempt again tomorrow. LAKESHIA CALDERA MSCCC-OPERATER
[2017-04-15 16:00] VITALS: BP 160/80
[2017-04-15 20:00] VITALS: BP 158/78
--- NOTE | 2017-04-15 20:00 | NUR ---
ASSUMED CARE OF PATIENT. ASSESSMENT COMPLETE. RESTING IN BED. BED ALARM ON. WILL CONTINUE TO MONITOR.
[2017-04-16] VITALS (10 sets, daily range): BP systolic 149–211; BP diastolic 60–95
--- NOTE | 2017-04-16 00:29 | NUR ---
DR FLYNN MADE AWARE THAT PT BP 222/98 AND PT HAVING BROWN EMESIS. HE STATES HE WILL PUT AN ORDER IN FOR HYDRALAZINE IV
--- NOTE | 2017-04-16 01:07 | NUR ---
10 MG IV HYDRALAZINE GIVEN PER ORDER AT THIS TIME. ALSO MEDICATED WITH PRN ZOFRAN FOR BROWN EMESIS X2
--- NOTE | 2017-04-16 01:50 | NUR ---
PT HAVING COFFEE GROUND EMESIS. SAMPLE TESTED HEMOCCULT POSITIVE. CALLED AND MADE DR FLYNN AWARE, ORDER RECEIVED TO CALL DR WAHL. CALLED AND MADE DR WAHL AWARE. NO ORDERS RECEIVED.
--- NOTE | 2017-04-16 02:00 | NUR ---
PT RESTING AFTER IV ZOFRAN, NO FURTHER EMESIS AT THIS TIME
--- NOTE | 2017-04-16 03:07 | NUR ---
DR FLYNN MADE AWARE BP 170/78 AFTER IV HYDRALAZINE. NO ADDITIONAL ORDERS RECEIVED
[2017-04-16 03:14] LABS: BASO % 0.1 % (0.0-1.0); HEMATOCRIT 35.9 % (37.0-47.0); HEMOGLOBIN 11.7 g/dl (12.0-16.0); LYMPH # 1.1 10*3/uL (1.3-4.4); MEAN CELL VOLUME 84.3 fl (81.0-99.0); MEAN CORPUSCULAR HGB 27.5 pg (27.0-31.0); MEAN CORPUSCULAR HGB CONC 32.6 g/dl (33.0-37.0); MEAN PLATELET VOLUME 10.3 fl (9.6-12.3); MONO % 4.4 % (3.0-9.0); NEUT # 19.5 10*3/uL (2.3-7.9); NEUT % 89.8 % (47.0-73.0); PLATELET COUNT AUTOMATED 249 10*3/uL (130-400); RED BLOOD COUNT 4.26 10*6/uL (4.10-5.10); RED CELL DISTRI WIDTH 16.7 % (0-14.5); WHITE BLOOD COUNT 21.7 10*3/uL (4.8-10.8)
[2017-04-16 03:30] LABS: ALBUMIN 2.9 gm/dl (3.1-4.5); BILIRUBIN, DIRECT 0.6 mg/dL (0.0-0.2); CREATININE 1.27 mg/dL (0.55-1.02); PHOSPHOROUS 1.1 mg/dL (2.5-4.9); TOTAL PROTEIN 7.5 gm/dL (6.4-8.2)
[2017-04-16 06:10] LABS: HEPATITIS B SURFACE AG Negative (Negative); HEPATITIS C VIRUS ANTIBODY <0.1 s/co (0.0-0.9)
--- NOTE | 2017-04-16 06:30 | NUR ---
PT DRY DAWITNG, MEDICATED WITH PRN ZOFRAN AT THIS TIME.
--- NOTE | 2017-04-16 06:59 | NUR ---
DR WAHL CALLED. ORDER RECEIVED TO CALL FAMILY TO SEE IF THEY WOULD LIKE PT TO HAVE EGD TODAY. ORDER ALSO RECEIVED FOR IV PROTONIX DAILY.
--- NOTE | 2017-04-16 07:07 | NUR ---
SPOKE TO SON, KAYLA CRUZ. STATES HE DOES WANT EGD DONE TODAY. CALLED AND MADE DR WAHL AWARE. PT FOR EGD TODAY
--- NOTE | 2017-04-16 07:13 | NUR ---
PT SON KAYLA CRUZ NUMBER [phone]
--- NOTE | 2017-04-16 10:22 | NUR ---
SPEECH PATHOLOGY Patient is currently NPO and scheduled for EGD today. Reports indicate continued nausea/vomiting. Will monitor patient and complete clinical swallowing assessment when appropriate. Thank you for this referral. LAKESHIA CALDERA MSCCC-SERVICE DESK DIRECTOR
--- NOTE | 2017-04-16 11:25 | NUR ---
PT OFF FLOOR TO SURGERY FOR EGD.
--- NOTE | 2017-04-16 11:35 | NUR ---
RAMON VELEZ NP NOTIFIED OF CRITICAL TROPONIN.
--- NOTE | 2017-04-16 12:15 | NUR ---
PHYSICAL THERAPY PAtient at surgery at this time. Raisa Bunch,PT
[2017-04-17] VITALS: BP 158/76
--- NOTE | 2017-04-17 02:48 | NUR ---
Midnight medications given in applesauce, tolerated without difficulty but did take some time. Was responding to questions. answering yes appropriately and looking at me. When asked if wanted to be left alone, responded please. Will continue to monitor.
[2017-04-17 06:45] LABS: BASO % 0.2 % (0.0-1.0); HEMATOCRIT 32.9 % (37.0-47.0); HEMOGLOBIN 10.9 g/dl (12.0-16.0); LYMPH # 1.5 10*3/uL (1.3-4.4); MEAN CELL VOLUME 85.5 fl (81.0-99.0); MEAN CORPUSCULAR HGB 28.3 pg (27.0-31.0); MEAN CORPUSCULAR HGB CONC 33.1 g/dl (33.0-37.0); MEAN PLATELET VOLUME 11.3 fl (9.6-12.3); MONO % 5.6 % (3.0-9.0); NEUT # 14.3 10*3/uL (2.3-7.9); NEUT % 83.5 % (47.0-73.0); PLATELET COUNT AUTOMATED 247 10*3/uL (130-400); RED BLOOD COUNT 3.85 10*6/uL (4.10-5.10); RED CELL DISTRI WIDTH 17.5 % (0-14.5); WHITE BLOOD COUNT 17.1 10*3/uL (4.8-10.8)
[2017-04-17 07:25] LABS: POTASSIUM 3.9 mmol/L (3.5-5.1)
[2017-04-17 07:30] LABS: ALBUMIN 2.6 gm/dl (3.1-4.5); CREATININE 1.38 mg/dL (0.55-1.02); PHOSPHOROUS 1.3 mg/dL (2.5-4.9); TOTAL PROTEIN 6.9 gm/dL (6.4-8.2)
[2017-04-17 08:00] VITALS: BP 153/80
--- NOTE | 2017-04-17 08:10 | NUR ---
Refused Carafate this morning and refused Blood sugar. Will continue to monitor.
--- NOTE | 2017-04-17 09:30 | NUR ---
SPEECH PATHOLOGY Bedside swallow eval. completed as per orders. Patient was alert but at times did not respond to questions or commands. Patient needed encouragement to take food and liquid. She could not comply to follow directions for oral assessment. Patient was given puree, thin liquid and solid consistency. She is currently ordered a regular diet. Patient displayed slow but functional mastication of solids. No cough, choke or oral residue observed with any consistency. Recommend she remain on regular diet and thin liquids, but receive softer food options to result in easier, faster mastication. Recommend use of safe swallow precautions such as upright positioning for meals, small bites/sips and alternating liquids and solids. Follow up therapy is warranted to ensure safe tolerance of present diet. Results and ro. were shared with patient's nurse who verbalized understanding. She reported that patient has had no further occurrances of emesis today and was able to eat breakfast with encouragment, displaying tolerance for items given. Refer to report in [employer] for further information. Thank you for this referral. LAKESHIA CALDERA MSCCC-REGISTERED NURSE FETAL
[2017-04-17 12:00] VITALS: BP 152/63
--- NOTE | 2017-04-17 13:58 | NUR ---
Nutritional Support Services Note: Pt with Dx of esophageal and duodenal ulcers. Speech therapy evaluation recommends softer foods and thin liquids. She currently receives a 1800cal diabetic diet with Boost Glucose Control TID with meals. Needs encouraged to eat and assisted. Encourage fluid intake. Will continue to follow. Halley Powell
[2017-04-17 16:00] VITALS: BP 157/78
[2017-04-17 20:00] VITALS: BP 148/56
--- NOTE | 2017-04-17 21:00 | NUR ---
AWAKE, NON-VERBAL AT PRESENT. RESPIRATIONS EASY. LUNGS DIMINISHED WITH POOR INSPIRATORY EFFORT. PULSE OX 98% RA. INFREQUENT LOOSE NON-PRODUCTIVE COUGH. TRACE BLE EDEMA. TEDS AND SCDS APPLIED PER ORDER. CALL LIGHT WITHIN REACH. BED ALARM MAINTAINED FOR SAFETY
--- NOTE | 2017-04-17 23:42 | NUR ---
SPOKE TO DR. GEORGE ABOUT PT'S FLUIDS, SAID HE WILL RETURN CALL TO DETERMINE COURSE OF ACTION. HE ALSO GAVE ORDER TO STRAIGHT CATH THE PATIENT TO RETRIEVE A URINE SAME FOR UA AND UC.
[2017-04-18] VITALS: BP 153/65
[2017-04-18 00:39] LABS: BILIRUBIN NEGATIVE (NEGATIVE); BLOOD TRACE-LYSED (NEGATIVE); CLARITY SL CLOUDY (CLEAR); COLOR YELLOW (YELLOW); GLUCOSE NEGATIVE (NEGATIVE); KETONE NEGATIVE (NEGATIVE); LEUKO ESTERASE 1+ (NEGATIVE); NITRITE NEGATIVE (NEGATIVE); PH 5.5 (5.0-9.0); UROBILINOGEN 0.2 E.U./dl (0.2-1.0)
[2017-04-18 00:47] LABS: BACTERIA 2+
--- NOTE | 2017-04-18 01:00 | NUR ---
STRAIGHT CATHED PATIENT PER DR ORDERS, RETREIVED 150 ML OF URINE, SENT SPECIMENS FOR UA REFLEX TO TO LAB. PT TOLERATED PROCEDURE WELL AND IS RESTING COMFORTABLY IN HER BED.
--- NOTE | 2017-04-18 06:00 | NUR ---
SLEPT THROUGHOUT NIGHT WITH NO DISTRESS NOTED. RESPIRATIONS EASY. CALL LIGHT WITHIN REACH. BED ALARM MAINTAINED FOR SAFETY
[2017-04-18 06:34] LABS: BASO % 0.2 % (0.0-1.0); EOS # 0.1 10*3/uL (0.0-0.4); EOS % 0.4 % (1.0-4.0); HEMOGLOBIN 10.6 g/dl (12.0-16.0); LYMPH # 1.2 10*3/uL (1.3-4.4); LYMPH % 6.6 % (27.0-41.0); MEAN CELL VOLUME 85.9 fl (81.0-99.0); MEAN CORPUSCULAR HGB 27.6 pg (27.0-31.0); MEAN CORPUSCULAR HGB CONC 32.1 g/dl (33.0-37.0); MEAN PLATELET VOLUME 11.2 fl (9.6-12.3); MONO # 1.1 10*3/uL (0.1-1.0); MONO % 6.1 % (3.0-9.0); NEUT # 15.6 10*3/uL (2.3-7.9); NEUT % 85.7 % (47.0-73.0); PLATELET COUNT AUTOMATED 233 10*3/uL (130-400); RED BLOOD COUNT 3.84 10*6/uL (4.10-5.10); RED CELL DISTRI WIDTH 17.5 % (0-14.5); WHITE BLOOD COUNT 18.2 10*3/uL (4.8-10.8)
[2017-04-18 07:05] LABS: ALBUMIN 2.4 gm/dl (3.1-4.5); BILIRUBIN, DIRECT 0.4 mg/dL (0.0-0.2); CREATININE 1.24 mg/dL (0.55-1.02); POTASSIUM 3.8 mmol/L (3.5-5.1); TOTAL PROTEIN 6.6 gm/dL (6.4-8.2)
[2017-04-18 08:00] VITALS: BP 161/69
[2017-04-18 12:00] VITALS: BP 162/72
--- NOTE | 2017-04-18 13:12 | NUR ---
SPEECH PATHOLOGY PT SEEN THIS AM AND DURING LUNCH TO EVALUATE TOLERANCE TO DIET AND REINFORCE ASPIRATION PRECAUTIONS. GENERAL COMMENTS: DISCUSSED CASE WITH PT'S RN WHO REPORTED THAT PT CONSUMED A MINIMAL AMOUNT OF BREAKFAST DUE TO HER REFUSAL OF ALL OFFERINGS. UPON ENTRANCE TO ROOM DURING BOTH ENCOUNTERS, PT WAS SLEEPING. SHE WOKE TO AUDITORY CUES AND REMAINED AWAKE AND ALERT THROUGHOUT. HOB WAS POSITIONED UPRIGHT FOR ALL PO TRIALS. PT MADE EYE CONTACT WITH CLINICIAN BUT DID NOT VERBALIZE OR GESTURE THROUGHOUT EITHER ENCOUNTER. SWALLOWING: DURING THE INITIAL ENCOUNTER, MS. CRUZ DRANK WATER VIA STRAW X3. WHEN RECEIVING LUNCH, SHE MADE NO ATTEMPT TO DRINK FROM A STRAW EVEN WHEN IT WAS PLACED IN HER MOUTH. SHE WAS ORALLY DEFENSIVE AND REFUSED MAJORITY OF PO OFFERINGS. SHE ACCEPTED ONLY 4 VERY SMALL BITES OF PUREE (MASHED POTATOES) AND 6 SIPS OF LIQUID (BOOST, WATER) PIPED INTO ORAL CAVITY VIA STRAW. SHE MADE NO ATTEMPT TO SELF-FEED AND 100% ASSISTANCE WAS PROVIDED. ORAL PHASE: PT DID NOT CLOSE LIPS AROUND SPOON, RATHER FOOD WAS SCRAPED FROM THE SPOON ONTO THE BACK OF HER TEETH. ONCE IN HER ORAL CAVITY, BOLUS MANIPULATION WAS PROLONGED BUT ADEQUATE. MILD ORAL RESIDUE NOTED BETWEEN BITES, CLEARED WITH LIQUID WASH. PHARYNGEAL PHASE: HLE VISUALIZED. DURING INITIAL ENCOUNTER WHEN PT DRANK VIA STRAW, ONE INSTANCE OF COUGHING WAS NOTED. DURING SECOND ENCOUNTER, NO OVERT S/S OF ASPIRATION/PENETRATION WERE OBSERVED. IMPRESSIONS: MS. CRUZ DEMONSTRATED ORAL DEFENSIVENESS AND REFUSED NEARLY ALL PO OFFERINGS. SHE APPEARED TO TOLERATE SMALL BITES OF PUREE VIA TSP AND SMALL AMOUNTS OF THIN LIQUIDS WHEN PIPED INTO ORAL CAVITY VIA STRAW. BECAUSE OF HER PROLONGED MANIPULATION OF BOLUSES, A PUREED DIET WITH THIN LIQUIDS APPEARS MOST APPROPRIATE TO PROMOTE SWALLOWING SAFETY AND TO MAXIMIZE NUTRITION AT THIS TIME. MS. CRUZ'S RISK FACTORS FOR ASPIRATION INCLUDE CURRENT MENTAL STATUS, DEPENDENCE ON OTHERS FOR FEEDING ASSISTANCE, H/O ZENKER'S DIVERTICULUM, AND H/O CVA; ADHERENCE TO PRECAUTIONS BELOW IS RECOMMENDED TO REDUCE THIS RISK. RECOMMENDATIONS: 1. DOWNGRADE DIET TO PUREED FOODS WITH THIN LIQUIDS 2. 100% FEEDING ASSISTANCE - IF PT IS UNABLE TO DRAW FROM STRAW, PIPE IN LIQUIDS VIA STRAW OR ADMINISTER VIA TSP 3. STANDARD ASPIRATION PRECAUTIONS: FULLY UPRIGHT, AWAKE, AND ALERT FOR ALL PO; SMALL BITES/SIPS; ORAL CARE AT LEAST BID POC: CHUTE LOADER SERVICE WILL F/U TO ENSURE TOLERANCE TO DIET, EVALUATE FOR UPGRADE APPROPRIATE, AND REINFORCE ASPIRATION PRECAUTIONS. FINDINGS AND RECOMMENDATIONS WERE DISCUSSED WITH RN WHO INDICATED UNDERSTANDING AND AGREEMENT. ZHEN MITTAL, [facility] [place]-CHUTE LOADER
--- NOTE | 2017-04-18 13:18 | NUR ---
Faxed updates to Korin at [facility] for review.
--- NOTE | 2017-04-18 14:03 | NUR ---
MESSAGE LEFT FOR [facility] REGARDING PALLIATIVE CARE CONSULT. DR. CR MADE AWARE OF CONSULT WELL BY RAMON VELEZ NP.
--- NOTE | 2017-04-18 14:25 | NUR ---
Nutritional Support Services Note: Pt is taking very little po. Does not attempt to feed self. Staff to assist with all meals. Encouraged intake. [place] food preferences. Will follow as needed. Boost supplement as ordered. Halley Powell
--- NOTE | 2017-04-18 15:22 | NUR ---
DR. MCNALLY OFFICE NOTIFIED OF CONSULT.
[2017-04-18 16:00] VITALS: BP 153/58
[2017-04-18 20:00] VITALS: BP 124/69
--- NOTE | 2017-04-18 21:00 | NUR ---
AWAKE, NON-VERBAL AND NOT COOPERATIVE WITH DIRECTIONS. RESPIRATIONS EASY. LUNGS DIMINISHED WITH POOR INSPIRATORY EFFORT. NON-PRODUCTIVE COUGH. HYPOACTIVE BOWEL SOUNDS. TRACE BLE EDEMA WITH TEDS AND SCDS IN PLACE. IV FLUIDS INFUSING PER ORDER. CALL LIGHT WITHIN REACH. BED ALARM MAINTAINED FOR SAFETY
[2017-04-19] VITALS: BP 144/70
--- NOTE | 2017-04-19 | NUR ---
RESTING WITH EYES CLOSED. RESPIRATIONS EASY. PULSE OX 97% RA. IV FLUIDS MAINTAINED. BED ALARM IN PLACE FOR SAFETY
--- NOTE | 2017-04-19 01:11 | NUR ---
AEROSOL TREATMENT NOT GIVEN. HR >140
--- NOTE | 2017-04-19 03:00 | NUR ---
RESTING IN BED WITH EYES CLOSED. RESPIRATIONS EASY. IV FLUIDS MAINTAINED. CALL LIGHT WITHIN REACH
--- NOTE | 2017-04-19 06:00 | NUR ---
RESTED THROUGHOUT NIGHT. CONDITION UNCHANGED. IV FLUIDS MAINTAINED PER ORDER. CALL LIGHT WITHIN REACH
[2017-04-19 08:00] VITALS: BP 170/70
--- NOTE | 2017-04-19 08:33 | NUR ---
PATIENT ONLY GIVEN MAINTENANCE MEDICATIONS BUT REFUSED THEM. NO OTHER CONCERNS AT THIS TIME.
[2017-04-19 12:00] VITALS: BP 175/72
[2017-04-19 16:00] VITALS: BP 164/86
--- NOTE | 2017-04-19 17:54 | NUR ---
DR. CR IN TO SEE FAMILY. DR. PALOMINO STATED THAT THE PT'S FAMILY AGREED TO SEND THE PT BACK TO THE HALFWAY AND TO LET THE PT CONTINUE PALLIATIVE CARE AT THE HALFWAY AND STOP ALL HOSPITALIZATIONS THAT MAY ARISE IN HE FUTURE.
--- NOTE | 2017-04-19 18:01 | NUR ---
DR. FLYNN CALLED AND NOTIFIED ABOUT THE PT'S FAMILY'S DECISION TO LET THE PATIENT GO BACK TO THE HALF-WAY TO CONTINUE PALLIATIVE CARE AND ORDER A NON-HOSPITALIZATION FOR THE PATIENT. DR. FLYNN STATED THAT THE HOSPITALIST WILL NEED TO PLACE THAT ORDER AND THAT IT WILL BE DONE TOMORROW. NO OTHER CONCERNS.
[2017-04-19 20:00] VITALS: BP 150/81; BP 156/82
--- NOTE | 2017-04-19 23:54 | NUR ---
24 HR chart check completed.
[2017-04-20] VITALS: BP 150/97
[2017-04-20 04:00] VITALS: BP 146/86
[2017-04-20 05:59] LABS: BASO % 0.3 % (0.0-1.0); EOS # 0.3 10*3/uL (0.0-0.4); EOS % 2.8 % (1.0-4.0); HEMATOCRIT 30.8 % (37.0-47.0); HEMOGLOBIN 9.9 g/dl (12.0-16.0); LYMPH # 1.5 10*3/uL (1.3-4.4); LYMPH % 13.5 % (27.0-41.0); MEAN CORPUSCULAR HGB CONC 32.1 g/dl (33.0-37.0); MEAN PLATELET VOLUME 10.7 fl (9.6-12.3); MONO # 0.8 10*3/uL (0.1-1.0); MONO % 7.5 % (3.0-9.0); NEUT # 8.5 10*3/uL (2.3-7.9); NEUT % 75.1 % (47.0-73.0); PLATELET COUNT AUTOMATED 233 10*3/uL (130-400); RED BLOOD COUNT 3.54 10*6/uL (4.10-5.10); RED CELL DISTRI WIDTH 17.6 % (0-14.5); WHITE BLOOD COUNT 11.3 10*3/uL (4.8-10.8)
[2017-04-20 06:07] LABS: ALBUMIN 2.2 gm/dl (3.1-4.5); CREATININE 1.14 mg/dL (0.55-1.02); POTASSIUM 3.7 mmol/L (3.5-5.1); TOTAL PROTEIN 6.3 gm/dL (6.4-8.2)
[2017-04-20 08:00] VITALS: BP 150/90
--- NOTE | 2017-04-20 08:00 | NUR ---
HOB ELEVATED, EASY RESPIRATIONS WITH SKIN W/D. PT DOES NOT ANSWER ANY ASSESMENT QUESTIONS. ATTEMPTED TO GIVE AM MEDS & PT HELD IN HER MOUTH. DID NOT ATTEMPT OR UNDERSTAND TO SWALLOW MED. PO HELD. BEDALARM FOR PT SAFETY. SEE SHIFT ASSESSMENT.
--- NOTE | 2017-04-20 10:00 | NUR ---
SON & DTR AT BEDSIDE, INFORMED THAT PT HAS BEEN UNABLE TO TAKE PO TODAY. DTR STATES THAT SHE FED HER MOTHER YESTERDAY & WOULD LIKE TO ATTEMPT NOW. REVIEWED ASPIRATION PRECAUTIONS, DTR VOICES UNDERSTANDING.
[2017-04-20 12:00] VITALS: BP 167/61
--- NOTE | 2017-04-20 12:08 | NUR ---
DR COUGHLIN IN TO SEE PT, FAMILY AT BEDSIDE. INFORMED THAT PT IS NOT EATING & IS UNABLE TO SWALLOW MEDS. NEW ORDERS RECEIVED.
--- NOTE | 2017-04-20 15:56 | NUR ---
PT RESTING WITH FAMILY AT BEDSIDE, EYES OPEN, NO VERBAL RESPONSE. DOES NOAT FOLLOW COMMANDS.
[2017-04-20 16:00] VITALS: BP 168/74
[2017-04-20 20:00] VITALS: BP 130/50
--- NOTE | 2017-04-20 20:00 | NUR ---
IN BED RESTING QUIETLY. OPENS EYES. NON-VERBAL AT THIS TIME. NO S/S OF DISTRESS NOTED. WILL CONT TO MONITOR.
[2017-04-21] VITALS: BP 149/45
--- NOTE | 2017-04-21 00:15 | NUR ---
PATIENT RESTING COMFORTABLY IN BED. SHE OPENS HER EYES TO VERBAL STIMULI BUT IS UNABLE TO TALK. SHE IS COOPERATIVE WITH CARE. SEE ASSESMENT. NOT GIVEN MIDNIGHT MEDICATION DUE TO DYSPHAGIA. CALL LIGHT IS IN REACH. WILL MONITOR.
[2017-04-21 08:00] VITALS: BP 172/64
--- NOTE | 2017-04-21 08:25 | NUR ---
PATIENT ASSESSED AND BLE/BUE NOTED WITH +3 EDEMA. THE PATIENT IS ALSO LABORED BREATHING WITH POX OF 91%. THE PT'S PULSE WAS INCREASED AT 124 AND PULSE IS POUNDING. [address] DESOUZA WAS NOTIFIED OF THE ASSESSMENT AND THE AMOUNT OF FLUIDS GIVEN TO THE PT. FLUIDS DC PER DR. DESOUZA T/O
--- NOTE | 2017-04-21 08:45 | NUR ---
SPEECH PATHOLOGY Patient was unable to participate in treatment this am. Upon entering her room, she was noted to be awake but unresponsive to stim. She displayed rapid, audible respirations. Feeding was not attempted due to safety. Will continue to monitor patient. LAKESHIA CALDERA MSCCC-MUNITIONS HANDLER SUPERVISOR
--- NOTE | 2017-04-21 10:39 | NUR ---
PHYSICAL THERAPY PAtient is group home care and now hospice being dicussed. Will D/C PT orders. Thank you for this referral, Raisa Cardoso ,PT
[2017-04-21] MEDS ORDERED: REGLAN10 MG/10 M PO (12:01)
[2017-04-21] MEDS ORDERED: AMLODIPINE BESYL5 MG PO (12:01)
[2017-04-21] MEDS ORDERED: TEMAZEPAM15 M1 PO (12:01)
[2017-04-21] MEDS ORDERED: Carafate1 GM PO (12:01)
--- NOTE | 2017-04-21 13:13 | NUR ---
Patient is being discharged back to [facility] under community hospice. [facility] [place] and nursing notified.
--- NOTE | 2017-04-21 13:31 | NUR ---
DENNIS PALMER CALLED AND NURSE TO NURSE GIVEN. HEAD TO TOE ASSESSMENT WAS COMPLETE WELL HOSPITAL CARE THAT WAS DONE. NO CONCERNS FROMT HE NURSE AT THIS TIME.
--- NOTE | 2017-04-21 13:47 | NUR ---
Discharge instructions reviewed with patient/family. Patient receptive and verbalizes understanding. Follow-up care arranged. Written instructions given to patient/family. RIANA ZAMORANO
== END 2017-04-21 13:44 | disposition home or self-care (01) | DRG 682 ==
LOC: ED 19:16 → EDHOLD 21:41 → 5E 21:41
PROVIDERS: Family Medicine; Hospitalist; Internal Medicine; Internal Medicine Gastroenterology; Nurse Practitioner Family; Registered Nurse; ADMIT Internal Medicine
PROC: 0DB68ZX Excision of Stomach, Via Natural or Artificial Opening Endoscopic, Diagnostic (ICD-10-PCS; principal; 2017-04-16)
DX: N17.0 Acute kidney failure with tubular necrosis (principal); G93.41 Metabolic encephalopathy; J69.0 Pneumonitis due to inhalation of food and vomit; R65.20 Severe sepsis without septic shock; E43 Unspecified severe protein-calorie malnutrition; A41.9 Sepsis, unspecified organism; E44.0 Moderate protein-calorie malnutrition; K22.10 Ulcer of esophagus without bleeding; R62.7 Adult failure to thrive; K59.09 Other constipation; Z66 Do not resuscitate; Z51.5 Encounter for palliative care; F51.04 Psychophysiologic insomnia; D50.9 Iron deficiency anemia, unspecified; Z96.1 Presence of intraocular lens; M06.9 Rheumatoid arthritis, unspecified; I12.9 Hypertensive chronic kidney disease with stage 1 through stage 4 chronic kidney disease, or unspecified chronic kidney disease; E11.22 Type 2 diabetes mellitus with diabetic chronic kidney disease; J20.9 Acute bronchitis, unspecified; K29.70 Gastritis, unspecified, without bleeding; K26.9 Duodenal ulcer, unspecified as acute or chronic, without hemorrhage or perforation; R74.0 Nonspecific elevation of levels of transaminase and lactic acid dehydrogenase [LDH]; N18.3 Chronic kidney disease, stage 3 (moderate); Z79.4 Long term (current) use of insulin; Z68.22 Body mass index [BMI] 22.0-22.9, adult; I25.2 Old myocardial infarction; Z87.440 Personal history of urinary (tract) infections; Z90.710 Acquired absence of both cervix and uterus; Z98.49 Cataract extraction status, unspecified eye; Z87.891 Personal history of nicotine dependence; Z88.1 Allergy status to other antibiotic agents; Z88.0 Allergy status to penicillin; Z88.8 Allergy status to other drugs, medicaments and biological substances; Z91.018 Allergy to other foods; Z79.82 Long term (current) use of aspirin; Z79.899 Other long term (current) drug therapy; Z82.49 Family history of ischemic heart disease and other diseases of the circulatory system